=== PATIENT | female | born 1945 | race Caucasian/White ===

== ENCOUNTER 2016-09-19 15:10 | Day surgery (SDC) | payer OTHER ==
[~2016-09-19 15:10] MED LIST: ACYCLOVIR200 MG PO; AMBIEN5 MG PO; AMLODIPINE BESY10 MG PO; AMLODIPINE BESYL5 MG PO; ASPIR-LOW81 M1; ASPIR-LOW81 MG PO; ATIVAN1 MG PO; BENAZEPRIL HCL40 MG PO; CALCITRIOL0.25 MCG; CALCITRIOL0.25 MCG PO; CLONIDINE HCL0.1 MG PO; CLONIDINE HCL0.2 MG PO; COLACE100 MG PO; COUMADIN2 MG PO; COUMADIN3 MG PO; DRISDOL50000 UNIT PO; FUROSEMIDE40 MG; FUROSEMIDE40 MG PO; FUROSEMIDE80 MG PO; HYDRALAZINE HC100 MG PO; HYDROXYZINE HCL25 MG PO; KLOR-CON M2020 MEQ PO; KLOR-CON20 MEQ PO; LACTULOSE10 GM/151 PO; LASIX40 MG PO; LEVEMIR FL100 UNIT/1 SC; LEVEMIR FL100 UNITS/ SC; LEVEMIR100 UNIT/2; LEVEMIR100 UNIT/2 SC; LEVOTHROID137 MCG; LEVOTHYROXINE150 MCG PO; LISINOPRIL-HCT1 EAC3; LISINOPRIL-HCT1 EACH PO; LOPRESSOR100 M1 PO; LOSARTAN POTAS100 MG PO; METOLAZONE5 MG PO; METOPROLOL SUC100 MG PO; METOPROLOL TAR100 MG; MIRALAX17 GM PO; MYCOSTATIN 100,60 ML PO; NEPHRO-VITE,1 TABLET PO; NITROGLYCERIN0.4 MG SL; NITROSTAT0.4 MG SL; NORVASC5 MG PO; NOVOLOG 10100 UNITS/ SC; NOVOLOG PE100 UNITS/ SC; NOVOLOG PE100 UNITS/ SQ; OXYCODONE HCL5 MG PO; PEN-VEE K,VEET500 MG PO; PERCOCET 5/31 TABLET PO; PLAVIX75 MG; PLAVIX75 MG PO; PRINIVIL20 MG PO; PROAIR HFA8.5 GM IH; RENVELA800 MG PO; SYMBICORT60 INHALAT IH; SYNTHROID150 MCG PO; SYNTHROID175 MCG PO; URSODIOL300 MG PO; VITAMIN B12 100MCG PO; VITAMIN D2000 UNIT PO; VITAMIN D22000 UNIT PO; VITAMIN D5000 UNIT; WARFARIN SODIUM1 MG PO; WARFARIN SODIUM3 MG PO; XALATAN2.5 ML; XALATAN2.5 ML BOTH EYES; XYLOCAINE VISC100 ML MM; ZOFRAN8 MG PO; ZOLPIDEM TARTRA10 MG; ZOLPIDEM TARTRA10 MG PO
[2016-09-19 15:49] LABS: POINT-OF-CARE METER ID UU13113696
[2016-09-19 17:05] LABS: METH RESISTANT S AUREUS PCR NEGATIVE (NEGATIVE)
[2016-09-19 17:11] LABS: PROBE CHECK PASS; SPECIMEN PROCESSING CONTROL PASS
[2016-09-19 17:28] LABS: POINT-OF-CARE METER ID UU13113819
== END 2016-09-20 18:05 | disposition home or self-care (01) ==
LOC: CATH 15:10
PROVIDERS: Surgery
DX: T82.858A Stenosis of other vascular prosthetic devices, implants and grafts, initial encounter (principal); Y83.2 Surgical operation with anastomosis, bypass or graft as the cause of abnormal reaction of the patient, or of later complication, without mention of misadventure at the time of the procedure; Z99.2 Dependence on renal dialysis; I12.0 Hypertensive chronic kidney disease with stage 5 chronic kidney disease or end stage renal disease; E11.22 Type 2 diabetes mellitus with diabetic chronic kidney disease; N18.6 End stage renal disease; E78.5 Hyperlipidemia, unspecified; J44.9 Chronic obstructive pulmonary disease, unspecified; I48.91 Unspecified atrial fibrillation
CPT/HCPCS: 82948; 87641; C1725; C1769; C1894; J1644; J2250; J3010

== ENCOUNTER 2016-11-20 08:00 | Day surgery (SDC) | payer OTHER ==
[~2016-11-20] VITALS: Ht 165.1 cm; Wt 95.3 kg
[2016-11-20] MEDS ORDERED: COUMADIN3 MG PO (08:41)
[2016-11-20] MEDS ORDERED: COUMADIN2 MG PO (08:43)
[2016-11-20 08:46] LABS: POINT-OF-CARE METER ID UU13113696
[2016-11-20 10:00] LABS: METH RESISTANT S AUREUS PCR NEGATIVE (NEGATIVE)
[2016-11-20 10:06] LABS: PROBE CHECK PASS; SPECIMEN PROCESSING CONTROL PASS
== END 2016-11-20 12:45 | disposition home or self-care (01) ==
LOC: CATH 08:00
PROVIDERS: Surgery
DX: T82.858A Stenosis of other vascular prosthetic devices, implants and grafts, initial encounter (principal); T82.898A Other specified complication of vascular prosthetic devices, implants and grafts, initial encounter; Y83.2 Surgical operation with anastomosis, bypass or graft as the cause of abnormal reaction of the patient, or of later complication, without mention of misadventure at the time of the procedure; N18.6 End stage renal disease; Z99.2 Dependence on renal dialysis; E78.5 Hyperlipidemia, unspecified; I65.29 Occlusion and stenosis of unspecified carotid artery; Z79.4 Long term (current) use of insulin; Z79.01 Long term (current) use of anticoagulants; F17.200 Nicotine dependence, unspecified, uncomplicated
CPT/HCPCS: 82948; 87641; C1725; C1769; C1874; C1894; J1644; J2250; J2405; J2765; J3010

== ENCOUNTER 2017-04-10 15:33 | Inpatient (IN) | payer OTHER ==
[~2017-04-10] VITALS: Ht 198.1 cm; Wt 107.5 kg
[~2017-04-10 15:33] MED LIST changes: -DRISDOL50000 UNIT PO; +ERGOCALCIF50000 UNIT PO
[2017-04-10 16:48] LABS: HEMATOCRIT 34.7 % (36.0-46.0); MCH 27.9 PG (29.0-34.0); MCV 87.2 FL (83-99); PLATELET COUNT 222 K/uL (156-360); RBC DIS.WIDTH-CV 13.5 % (11.8-14.6); RBC DIS.WIDTH-SD 42.7 % (39-53); RED BLOOD COUNT 3.98 M/uL (3.80-5.20); WHITE BLOOD COUNT 8.3 K/uL (4.1-10.2)
[2017-04-10 17:08] LABS: CHLORIDE 97 mEq/L (99-109); POTASSIUM 3.9 mEq/L (3.7-5.4); SODIUM 138 mEq/L (136-147)
[2017-04-10 17:10] LABS: GLUCOSE 178 mg/dL (70-99)
[2017-04-10 17:11] LABS: ANION GAP 9 MEQ/L (2-14)
[2017-04-10 17:14] LABS: GFR ESTIMATE (CALCULATED) 22 mL/min/; UREA NITROGEN (BUN) 14 mg/dL (9-23)
[2017-04-10 17:19] LABS: TROP-I INTERPRETATION NEGATIVE; TROPONIN-I 0.03 ng/mL (0.0-0.30)
[2017-04-10 17:58] LABS: INTER. NORMALIZED RATIO 2.6; PROTHROMBIN TIME 29.4 SEC (10.2-12.9)
[2017-04-10] MEDS ORDERED: COUMADIN1 MG PO (18:24)
[2017-04-10] MEDS ORDERED: ZESTRIL40 MG PO (18:28)
[2017-04-10] MEDS ORDERED: LEVOFLOXACIN500 MG PO (18:34)
[2017-04-10 19:45] VITALS: BP 192/79
[2017-04-10 21:43] LABS: POINT-OF-CARE METER ID UU13113700
[2017-04-10 23:56] LABS: TROP-I INTERPRETATION NEGATIVE; TROPONIN-I 0.04 ng/mL (0.0-0.30)
[2017-04-11] VITALS: BP 156/90
[2017-04-11 04:54] VITALS: BP 152/88
[2017-04-11 05:48] LABS: BASOPHIL COUNT 0.1 K/uL (0-0.1); EOSINOPHIL (%) 9.1 % (0-5); EOSINOPHIL COUNT 0.6 K/uL (0-0.3); HEMATOCRIT 31.3 % (36.0-46.0); IMMATURE GRANULOCYTE (%) 0.3 % (0.0-0.7); INSTRUMENT ABS NEUTROPHIL CT 3.9 K/uL; LYMPHOCYTE COUNT 1.5 K/uL (1.0-2.8); MCH 29.6 PG (29.0-34.0); MCHC 33.5 G/DL (30.0-36.0); MCV 88.2 FL (83-99); MEAN PLAT.VOLUME 11.4 uM^3 (9.5-12.4); MONOCYTE COUNT 0.6 K/uL (0-0.8); NEUTROPHIL (%) 58.6 % (45-76); NEUTROPHIL COUNT 3.9 K/uL (1.8-6.4); PLATELET COUNT 183 K/uL (156-360); RBC DIS.WIDTH-CV 13.7 % (11.8-14.6); RBC DIS.WIDTH-SD 44.1 % (39-53); RED BLOOD COUNT 3.55 M/uL (3.80-5.20); WHITE BLOOD COUNT 6.6 K/uL (4.1-10.2)
[2017-04-11 05:53] LABS: ANION GAP 9 MEQ/L (2-14); CHLORIDE 99 MEQ/L (99-109); GFR ESTIMATE (CALCULATED) 16 mL/min/; INTER. NORMALIZED RATIO 2.4; POTASSIUM 3.4 MEQ/L (3.7-5.4); PROTHROMBIN TIME 27.2 SEC (10.2-12.9); SAMPLE HEMOLYSIS CHECK 0; SAMPLE ICTERIC CHECK 0; SAMPLE LIPEMIA CHECK 0; SODIUM 139 MEQ/L (136-147)
[2017-04-11 05:55] LABS: GLUCOSE 101 mg/dL (70-99); UREA NITROGEN (BUN) 24 mg/dL (9-23)
[2017-04-11 05:58] LABS: TROP-I INTERPRETATION NEGATIVE; TROPONIN-I 0.03 ng/mL (0.0-0.30)
[2017-04-11 07:11] VITALS: BP 186/84
[2017-04-11 08:58] LABS: MAGNESIUM 2.2 mg/dl (1.3-2.7)
[2017-04-11 12:00] VITALS: BP 168/74
[2017-04-11 13:16] LABS: POINT-OF-CARE METER ID UU14162513
[2017-04-11 16:35] LABS: POINT-OF-CARE METER ID UU14208750
[2017-04-11 17:06] VITALS: BP 150/65
[2017-04-11 21:30] LABS: POINT-OF-CARE METER ID UU14208750
[2017-04-12 00:44] VITALS: BP 172/73
[2017-04-12 03:30] LABS: POINT-OF-CARE METER ID UU14208750
[2017-04-12 04:06] VITALS: BP 168/72
[2017-04-12 04:54] LABS: POINT-OF-CARE METER ID UU14208750
[2017-04-12 06:43] LABS: POINT-OF-CARE METER ID UU14208750
[2017-04-12 07:13] LABS: INTER. NORMALIZED RATIO 1.9; PROTHROMBIN TIME 21.9 SEC (10.2-12.9)
[2017-04-12 07:15] VITALS: BP 182/81
[2017-04-12 08:21] LABS: INTERNAL CONTROL VALID? YES
[2017-04-12 10:40] LABS: TROP-I INTERPRETATION NEGATIVE; TROPONIN-I 0.03 ng/mL (0.0-0.30)
[2017-04-12 11:22] LABS: POINT-OF-CARE METER ID UU14162508
[2017-04-12 11:35] VITALS: BP 188/74
[2017-04-12 11:56] LABS: HEMATOCRIT 34.8 % (36.0-46.0); MCH 29.7 PG (29.0-34.0); MCHC 32.5 G/DL (30.0-36.0); MCV 91.3 FL (83-99); PLATELET COUNT 207 K/uL (156-360); RBC DIS.WIDTH-SD 46.2 % (39-53); RED BLOOD COUNT 3.81 M/uL (3.80-5.20); WHITE BLOOD COUNT 9.4 K/uL (4.1-10.2)
[2017-04-12 12:22] LABS: CHLORIDE 95 mEq/L (99-109)
[2017-04-12 12:24] LABS: GLUCOSE 119 mg/dL (70-99); POTASSIUM 4.4 mEq/L (3.7-5.4); SODIUM 132 mEq/L (136-147)
[2017-04-12 12:25] LABS: ANION GAP 10 MEQ/L (2-14)
[2017-04-12 12:28] LABS: GFR ESTIMATE (CALCULATED) 13 mL/min/
[2017-04-12 12:32] LABS: UREA NITROGEN (BUN) 42 mg/dL (9-23)
[2017-04-12 16:15] VITALS: BP 175/76
[2017-04-12 16:50] LABS: POINT-OF-CARE METER ID UU14162508
[2017-04-12 17:12] LABS: POINT-OF-CARE METER ID UU14208750
[2017-04-12 17:43] LABS: POINT-OF-CARE METER ID UU14208750
[2017-04-12 21:24] LABS: POINT-OF-CARE METER ID UU14208750
[2017-04-12 23:21] VITALS: BP 91/51
[2017-04-13 03:37] LABS: POINT-OF-CARE METER ID UU14162508
[2017-04-13 05:35] LABS: HEMATOCRIT 31.8 % (36.0-46.0); MCH 29.2 PG (29.0-34.0); MCHC 32.4 G/DL (30.0-36.0); MCV 90.1 FL (83-99); MEAN PLAT.VOLUME 11.5 uM^3 (9.5-12.4); PLATELET COUNT 197 K/uL (156-360); RBC DIS.WIDTH-CV 13.9 % (11.8-14.6); RBC DIS.WIDTH-SD 45.1 % (39-53); RED BLOOD COUNT 3.53 M/uL (3.80-5.20); WHITE BLOOD COUNT 9.5 K/uL (4.1-10.2)
[2017-04-13 05:43] LABS: INTER. NORMALIZED RATIO 1.9; PROTHROMBIN TIME 21.1 SEC (10.2-12.9)
[2017-04-13 06:16] LABS: POINT-OF-CARE METER ID UU14162508
[2017-04-13 06:50] VITALS: BP 179/70
[2017-04-13 07:18] LABS: ANION GAP 11 MEQ/L (2-14); CHLORIDE 96 MEQ/L (99-109); GFR ESTIMATE (CALCULATED) 11 mL/min/; GLUCOSE 134 mg/dL (70-99); POTASSIUM 4.5 MEQ/L (3.7-5.4); SAMPLE HEMOLYSIS CHECK 0; SAMPLE ICTERIC CHECK 0; SAMPLE LIPEMIA CHECK 0; SODIUM 133 MEQ/L (136-147); UREA NITROGEN (BUN) 48 mg/dL (9-23)
[2017-04-13 08:24] LABS: EOSINOPHIL (%) 6.3 % (0-5); EOSINOPHIL COUNT 0.6 K/uL (0-0.3); HEMATOCRIT 31.7 % (36.0-46.0); IMMATURE GRANULOCYTE (%) 0.3 % (0.0-0.7); INSTRUMENT ABS NEUTROPHIL CT 6.8 K/uL; LYMPHOCYTE COUNT 0.9 K/uL (1.0-2.8); MCH 29.3 PG (29.0-34.0); MCHC 32.8 G/DL (30.0-36.0); MCV 89.3 FL (83-99); MEAN PLAT.VOLUME 11.5 uM^3 (9.5-12.4); MONOCYTE (%) 5.9 % (3-12); MONOCYTE COUNT 0.5 K/uL (0-0.8); NEUTROPHIL (%) 76.9 % (45-76); NEUTROPHIL COUNT 6.8 K/uL (1.8-6.4); PLATELET COUNT 213 K/uL (156-360); RBC DIS.WIDTH-CV 13.9 % (11.8-14.6); RBC DIS.WIDTH-SD 45.1 % (39-53); RED BLOOD COUNT 3.55 M/uL (3.80-5.20); WHITE BLOOD COUNT 8.8 K/uL (4.1-10.2)
[2017-04-13 12:40] LABS: POINT-OF-CARE METER ID UU14208750
[2017-04-13 12:48] LABS: POINT-OF-CARE METER ID UU14208750
[2017-04-13 13:21] VITALS: BP 169/72
[2017-04-13 14:48] VITALS: BP 189/77
[2017-04-13 15:37] LABS: POINT-OF-CARE METER ID UU14208750
[2017-04-13 19:17] VITALS: BP 141/63
[2017-04-13 21:32] LABS: POINT-OF-CARE METER ID UU14208750
[2017-04-13 23:20] VITALS: BP 138/66
[2017-04-14 06:51] LABS: POINT-OF-CARE METER ID UU14162508
[2017-04-14 07:22] LABS: PROTHROMBIN TIME 22.3 SEC (10.2-12.9)
[2017-04-14 08:44] VITALS: BP 180/77
[2017-04-14 11:34] LABS: POINT-OF-CARE METER ID UU14162508
[2017-04-14 15:39] VITALS: BP 180/72
[2017-04-14 16:20] VITALS: BP 160/70
[2017-04-14 16:37] LABS: TROP-I INTERPRETATION NEGATIVE; TROPONIN-I 0.04 ng/mL (0.0-0.30)
[2017-04-14 16:50] LABS: POINT-OF-CARE METER ID UU14208750
[2017-04-14 21:12] VITALS: BP 180/70
[2017-04-14 21:32] LABS: POINT-OF-CARE METER ID UU14162508
[2017-04-14 23:58] VITALS: BP 134/61
[2017-04-15 03:08] VITALS: BP 172/78
[2017-04-15 05:13] VITALS: BP 151/72
[2017-04-15 06:27] LABS: POINT-OF-CARE METER ID UU14162508
[2017-04-15 09:08] LABS: PROTHROMBIN TIME 22.1 SEC (10.2-12.9)
[2017-04-15 09:09] LABS: BASOPHIL COUNT 0.1 K/uL (0-0.1); EOSINOPHIL (%) 6.4 % (0-5); EOSINOPHIL COUNT 0.5 K/uL (0-0.3); HEMATOCRIT 31.9 % (36.0-46.0); IMMATURE GRANULOCYTE (%) 0.4 % (0.0-0.7); INSTRUMENT ABS NEUTROPHIL CT 6.2 K/uL; LYMPHOCYTE COUNT 0.9 K/uL (1.0-2.8); MCH 28.2 PG (29.0-34.0); MCV 88.1 FL (83-99); MEAN PLAT.VOLUME 11.6 uM^3 (9.5-12.4); MONOCYTE COUNT 0.7 K/uL (0-0.8); NEUTROPHIL (%) 73.6 % (45-76); NEUTROPHIL COUNT 6.2 K/uL (1.8-6.4); PLATELET COUNT 218 K/uL (156-360); RBC DIS.WIDTH-CV 14.1 % (11.8-14.6); RBC DIS.WIDTH-SD 45.1 % (39-53); RED BLOOD COUNT 3.62 M/uL (3.80-5.20); WHITE BLOOD COUNT 8.4 K/uL (4.1-10.2)
[2017-04-15 09:30] LABS: ANION GAP 10 MEQ/L (2-14); CHLORIDE 99 MEQ/L (99-109); POTASSIUM 4.8 MEQ/L (3.7-5.4); SAMPLE HEMOLYSIS CHECK 0; SAMPLE ICTERIC CHECK 0; SAMPLE LIPEMIA CHECK 0; SODIUM 134 MEQ/L (136-147)
[2017-04-15 09:36] LABS: GFR ESTIMATE (CALCULATED) 10 mL/min/; GLUCOSE 155 mg/dL (70-99); UREA NITROGEN (BUN) 52 mg/dL (9-23)
[2017-04-15 12:51] LABS: POINT-OF-CARE METER ID UU14162508
[2017-04-15 12:55] VITALS: BP 130/66
[2017-04-15 15:33] VITALS: BP 130/62
[2017-04-15 16:05] LABS: POINT-OF-CARE METER ID UU14162508
[2017-04-15 21:40] LABS: POINT-OF-CARE METER ID UU14162508
[2017-04-15 21:48] VITALS: BP 140/70
[2017-04-15 23:20] VITALS: BP 165/76
[2017-04-16 06:58] VITALS: BP 152/69
[2017-04-16 07:00] LABS: POINT-OF-CARE METER ID UU14208750
[2017-04-16 07:12] LABS: INTER. NORMALIZED RATIO 2.2; PROTHROMBIN TIME 24.6 SEC (10.2-12.9)
[2017-04-16] MEDS ORDERED: DULCOLAX5 MG PO (09:09)
[2017-04-16] MEDS ORDERED: CLONIDINE HCL0.1 MG PO (09:09)
[2017-04-16] MEDS ORDERED: LEVOFLOXACIN500 MG PO (09:09)
[2017-04-16] MEDS ORDERED: SENNA LAX8.6 MG PO (09:09)
[2017-04-16] MEDS ORDERED: COLACE100 MG PO (09:09)
== END 2017-04-16 10:28 | disposition home health service (06) | DRG 190 ==
LOC: EME → EDBD 15:33 → EME 15:33 → EDOF 18:31 → ENRESERV 18:33 → 2EAST 19:44 → 5WEST 19:46 → 2EAST 04-11 10:16 → ENRESERV 04-11 12:26 → 2EAST 04-11 16:13
PROVIDERS: Emergency Medicine; Hospitalist; Internal Medicine; Physician Assistant Medical
PROC: 5A1D60Z (ICD-10-PCS; principal; 2017-04-13)
DX: J44.0 Chronic obstructive pulmonary disease with (acute) lower respiratory infection (principal); J18.9 Pneumonia, unspecified organism; J96.01 Acute respiratory failure with hypoxia; J44.1 Chronic obstructive pulmonary disease with (acute) exacerbation; E11.649 Type 2 diabetes mellitus with hypoglycemia without coma; E87.6 Hypokalemia; I13.2 Hypertensive heart and chronic kidney disease with heart failure and with stage 5 chronic kidney disease, or end stage renal disease; I50.9 Heart failure, unspecified; E11.22 Type 2 diabetes mellitus with diabetic chronic kidney disease; N18.6 End stage renal disease; D63.1 Anemia in chronic kidney disease; N25.81 Secondary hyperparathyroidism of renal origin; E03.9 Hypothyroidism, unspecified; E66.2 Morbid (severe) obesity with alveolar hypoventilation; E78.5 Hyperlipidemia, unspecified; I25.10 Atherosclerotic heart disease of native coronary artery without angina pectoris; F41.9 Anxiety disorder, unspecified; G47.00 Insomnia, unspecified; I27.2 Other secondary pulmonary hypertension; I48.2 Chronic atrial fibrillation; K59.00 Constipation, unspecified; M35.3 Polymyalgia rheumatica; G43.909 Migraine, unspecified, not intractable, without status migrainosus; Z79.01 Long term (current) use of anticoagulants; Z79.4 Long term (current) use of insulin; I25.2 Old myocardial infarction; Z99.2 Dependence on renal dialysis; Z91.19 Patient's noncompliance with other medical treatment and regimen; Z95.5 Presence of coronary angioplasty implant and graft; Z88.2 Allergy status to sulfonamides; Z68.25 Body mass index [BMI] 25.0-25.9, adult
CPT/HCPCS: 71010; 71020; 71250; 74000; 76705; 80048; 80069; 82948; 83735; 84484; 85025; 85027; 85610; 87040; 87070; 87205; 87449; 93005; 93306; 94799; 97530 GP; 99202; 99281; 99285; G0378; G8978 GP CJ; G8979 GP CI; J0360; J0456; J0696; J0881; J1270; J1756; J1815; J2270; J2405; J7050

== ENCOUNTER 2017-07-09 08:00 | Day surgery (SDC) | payer OTHER ==
[~2017-07-09] VITALS: Ht 167.6 cm; Wt 95.2 kg
[~2017-07-09 08:00] MED LIST changes: +DULCOLAX5 MG PO; +LEVOFLOXACIN500 MG PO; +SENNA LAX8.6 MG PO; +ZESTRIL40 MG PO
[2017-07-09 09:08] LABS: POINT-OF-CARE METER ID UU13113696
[2017-07-09 10:10] LABS: METH RESISTANT S AUREUS PCR NEGATIVE (NEGATIVE); PROBE CHECK PASS; SPECIMEN PROCESSING CONTROL PASS
== END 2017-07-09 11:10 | disposition home or self-care (01) ==
LOC: CATH 08:00
PROVIDERS: Surgery
DX: T82.41XA Breakdown (mechanical) of vascular dialysis catheter, initial encounter (principal); N18.6 End stage renal disease; Z99.2 Dependence on renal dialysis; Z79.01 Long term (current) use of anticoagulants
CPT/HCPCS: 82948; 87641; C1725; C1769; C1874; C1894; J1644; J2250; J2405; J3010

== ENCOUNTER 2017-09-02 16:12 | Emergency (ER) | payer OTHER ==
[~2017-09-02] VITALS: Ht 167.6 cm; Wt 102.5 kg
[2017-09-02 18:07] LABS: HEMATOCRIT 32.5 % (36.0-46.0); HEMOGLOBIN 10.5 G/DL (11.9-15.5); MCHC 32.3 G/DL (30.0-36.0); MCV 89.8 FL (83-99); PLATELET COUNT 271 K/uL (156-360); RBC DIS.WIDTH-CV 13.2 % (11.8-14.6); RBC DIS.WIDTH-SD 43.2 % (39-53); RED BLOOD COUNT 3.62 M/uL (3.80-5.20); WHITE BLOOD COUNT 12.8 K/uL (4.1-10.2)
[2017-09-02 18:14] LABS: CHLORIDE 91 mEq/L (99-109); POTASSIUM 4.6 mEq/L (3.7-5.4); PTT 49.8 SEC (25-37); SODIUM 132 mEq/L (136-147)
[2017-09-02 18:16] LABS: GLUCOSE 239 mg/dL (70-99)
[2017-09-02 18:19] LABS: INTER. NORMALIZED RATIO 3.8
[2017-09-02 18:20] LABS: CREATININE 5.3 mg/dL (0.6-1.3); GFR ESTIMATE (CALCULATED) 9 mL/min/; UREA NITROGEN (BUN) 61 mg/dL (9-23)
[2017-09-02 21:20] VITALS: BP 167/60
== END 2017-09-02 21:43 | disposition home or self-care (01) ==
LOC: EME 16:12
PROVIDERS: Emergency Medicine
DX: S70.01XA Contusion of right hip, initial encounter (principal); S70.11XA Contusion of right thigh, initial encounter; N18.9 Chronic kidney disease, unspecified; Z99.2 Dependence on renal dialysis; R51 Headache; W01.0XXA Fall on same level from slipping, tripping and stumbling without subsequent striking against object, initial encounter; S91.103A Unspecified open wound of unspecified great toe without damage to nail, initial encounter; J45.909 Unspecified asthma, uncomplicated; I50.9 Heart failure, unspecified; E03.9 Hypothyroidism, unspecified; I25.2 Old myocardial infarction; H54.8 Legal blindness, as defined in USA; Z87.442 Personal history of urinary calculi; Z79.01 Long term (current) use of anticoagulants; Z88.5 Allergy status to narcotic agent; Z88.2 Allergy status to sulfonamides; Z88.6 Allergy status to analgesic agent
CPT/HCPCS: 70450; 73030; 73521; 73564; 80048; 85027; 85610; 85730; 99281; 99285

== ENCOUNTER → 2017-09-09 | Outpatient (CLI) | payer MEDICARE, OTHER | END | disposition home or self-care (01) | LOC: CDC 15:30 | DX: Z01.810 Encounter for preprocedural cardiovascular examination (principal); I48.91 Unspecified atrial fibrillation; I44.4 Left anterior fascicular block; I45.4 Nonspecific intraventricular block; I45.81 Long QT syndrome | CPT/HCPCS: 93000 ==

== ENCOUNTER 2017-12-18 10:12 | Inpatient (IN) | payer OTHER ==
[~2017-12-18] VITALS: Ht 167.6 cm; Wt 215.0 kg
[2017-12-18 11:18] LABS: BASOPHIL (%) 0.6 % (0-1); BASOPHIL COUNT 0.1 K/uL (0-0.1); EOSINOPHIL (%) 3.5 % (0-5); EOSINOPHIL COUNT 0.4 K/uL (0-0.3); HEMATOCRIT 34.4 % (36.0-46.0); HEMOGLOBIN 11.1 G/DL (11.9-15.5); IMMATURE GRANULOCYTE (%) 0.4 % (0.0-0.7); LYMPHOCYTE (%) 4.5 % (15-42); LYMPHOCYTE COUNT 0.5 K/uL (1.0-2.8); MCH 29.4 PG (29.0-34.0); MCHC 32.3 G/DL (30.0-36.0); MONOCYTE (%) 4.1 % (3-12); MONOCYTE COUNT 0.4 K/uL (0-0.8); NEUTROPHIL (%) 86.9 % (45-76); NEUTROPHIL COUNT 9.4 K/uL (1.8-6.4); PLATELET COUNT 234 K/uL (156-360); RBC DIS.WIDTH-CV 12.8 % (11.8-14.6); RBC DIS.WIDTH-SD 42.5 % (39-53); RED BLOOD COUNT 3.78 M/uL (3.80-5.20); WHITE BLOOD COUNT 10.8 K/uL (4.1-10.2)
[2017-12-18 11:23] LABS: INTER. NORMALIZED RATIO 2.3
[2017-12-18 11:24] LABS: BASE EXCESS -0.8 mEq/L (-3 to +3); BICARBONATE 24.3 mEq/L (22-26); CARBOXY HGB 1.4 % (0-5); PCO2 41 mm Hg (35-45); PO2 136 mm Hg (80-100); pH 7.38 (7.35-7.45)
[2017-12-18 11:25] LABS: COMMENTS - BLOOD GASES A+C+; DEVICE NRBM; O2 FLOW 15 L/MIN; SITE RR
[2017-12-18 11:26] LABS: PTT 42.1 SEC (25-37)
[2017-12-18 11:29] LABS: CHLORIDE 99 mEq/L (99-109); POTASSIUM 4.5 mEq/L (3.7-5.4); SODIUM 138 mEq/L (136-147)
[2017-12-18 11:30] LABS: MAGNESIUM 2.6 mg/dL (1.3-2.7)
[2017-12-18 11:31] LABS: GLUCOSE 301 mg/dL (70-99)
[2017-12-18 11:35] LABS: GFR ESTIMATE (CALCULATED) 6 mL/min/; UREA NITROGEN (BUN) 62 mg/dL (9-23)
[2017-12-18 11:39] LABS: TROP-I INTERPRETATION NEGATIVE; TROPONIN-I 0.03 ng/mL (0.0-0.30)
[2017-12-18] MEDS ORDERED: CATAPRES0.1 MG PO (12:59)
[2017-12-18] MEDS ORDERED: CILOSTAZOL50 MG PO (13:00)
[2017-12-18] MEDS ORDERED: DOXYCYCLINE MO100 M1 PO (13:01)
[2017-12-18] MEDS ORDERED: SYNTHROID200 MCG PO (13:02)
[2017-12-18] MEDS ORDERED: KEFLEX500 MG PO (13:03)
[2017-12-18] MEDS ORDERED: PULMICORT FLEX90 MCG IH (13:05)
[2017-12-18] MEDS ORDERED: COUMADIN3 MG PO (13:09)
[2017-12-18 18:54] VITALS: BP 134/68
[2017-12-18 23:19] VITALS: BP 123/86
[2017-12-19 03:46] VITALS: BP 129/59
[2017-12-19 06:42] LABS: HEMATOCRIT 30.6 % (36.0-46.0); HEMOGLOBIN 9.6 G/DL (11.9-15.5); MCH 28.7 PG (29.0-34.0); MCHC 31.4 G/DL (30.0-36.0); MCV 91.3 FL (83-99); PLATELET COUNT 215 K/uL (156-360); RBC DIS.WIDTH-CV 12.7 % (11.8-14.6); RBC DIS.WIDTH-SD 42.1 % (39-53); RED BLOOD COUNT 3.35 M/uL (3.80-5.20); WHITE BLOOD COUNT 7.3 K/uL (4.1-10.2)
[2017-12-19 06:47] LABS: INTER. NORMALIZED RATIO 2.3
[2017-12-19 07:05] LABS: CHLORIDE 97 MEQ/L (99-109); GLUCOSE 190 mg/dL (70-99); POTASSIUM 3.9 MEQ/L (3.7-5.4); SODIUM 138 MEQ/L (136-147); UREA NITROGEN (BUN) 33 mg/dL (9-23)
[2017-12-19 07:09] LABS: CREATININE 4.5 MG/DL (0.6-1.3); GFR ESTIMATE (CALCULATED) 10 mL/min/
[2017-12-19 07:28] VITALS: BP 139/63
[2017-12-19 11:53] VITALS: BP 132/60
[2017-12-19 16:00] VITALS: BP 125/56
[2017-12-19 19:30] VITALS: BP 132/67
[2017-12-19 23:18] VITALS: BP 143/69
[2017-12-20 04:06] VITALS: BP 133/71
[2017-12-20 06:20] LABS: HEMATOCRIT 29.4 % (36.0-46.0); HEMOGLOBIN 9.5 G/DL (11.9-15.5); MCH 29.5 PG (29.0-34.0); MCHC 32.3 G/DL (30.0-36.0); MCV 91.3 FL (83-99); PLATELET COUNT 200 K/uL (156-360); RBC DIS.WIDTH-CV 12.5 % (11.8-14.6); RBC DIS.WIDTH-SD 41.7 % (39-53); RED BLOOD COUNT 3.22 M/uL (3.80-5.20); WHITE BLOOD COUNT 6.6 K/uL (4.1-10.2)
[2017-12-20 06:48] LABS: CHLORIDE 96 MEQ/L (99-109); GFR ESTIMATE (CALCULATED) 8 mL/min/; MAGNESIUM 2.3 mg/dl (1.3-2.7); SODIUM 135 MEQ/L (136-147)
[2017-12-20 06:49] LABS: CREATININE 5.9 MG/DL (0.6-1.3); GLUCOSE 81 mg/dL (70-99); UREA NITROGEN (BUN) 51 mg/dL (9-23)
[2017-12-20 07:56] VITALS: BP 146/65
[2017-12-20 11:48] VITALS: BP 140/64
[2017-12-20 15:44] VITALS: BP 137/60
[2017-12-20 19:48] VITALS: BP 134/62
[2017-12-20 23:40] VITALS: BP 162/69
[2017-12-21 03:36] VITALS: BP 137/62
[2017-12-21 06:47] LABS: HEMATOCRIT 28.5 % (36.0-46.0); HEMOGLOBIN 9.1 G/DL (11.9-15.5); MCH 28.3 PG (29.0-34.0); MCHC 31.9 G/DL (30.0-36.0); MCV 88.8 FL (83-99); PLATELET COUNT 200 K/uL (156-360); RBC DIS.WIDTH-CV 12.5 % (11.8-14.6); RED BLOOD COUNT 3.21 M/uL (3.80-5.20); WHITE BLOOD COUNT 9.8 K/uL (4.1-10.2)
[2017-12-21 06:57] LABS: INTER. NORMALIZED RATIO 1.8
[2017-12-21 07:11] LABS: CHLORIDE 93 MEQ/L (99-109); CREATININE 6.9 MG/DL (0.6-1.3); GFR ESTIMATE (CALCULATED) 6 mL/min/; GLUCOSE 139 mg/dL (70-99); MAGNESIUM 2.5 mg/dl (1.3-2.7); PHOSPHORUS 5.1 mg/dL (2.5-4.9); POTASSIUM 4.4 MEQ/L (3.7-5.4); SODIUM 132 MEQ/L (136-147); UREA NITROGEN (BUN) 67 mg/dL (9-23)
[2017-12-21 07:34] VITALS: BP 124/60
== END 2017-12-21 15:49 | disposition home or self-care (01) | DRG 189 ==
LOC: EME 10:12 → 5SOUTH 13:39 → EDOF 13:39 → CANRESERV 13:47 → ENRESERV 13:47 → EDOF 14:07 → 5SOUTH 18:19
PROVIDERS: Emergency Medicine; Family Medicine; Internal Medicine
DX: J81.1 Chronic pulmonary edema (principal); J96.01 Acute respiratory failure with hypoxia; I13.2 Hypertensive heart and chronic kidney disease with heart failure and with stage 5 chronic kidney disease, or end stage renal disease; E11.22 Type 2 diabetes mellitus with diabetic chronic kidney disease; J90 Pleural effusion, not elsewhere classified; Z68.45 Body mass index [BMI] 70 or greater, adult; E66.01 Morbid (severe) obesity due to excess calories; M86.9 Osteomyelitis, unspecified; I27.20 Pulmonary hypertension, unspecified; I48.2 Chronic atrial fibrillation; E78.5 Hyperlipidemia, unspecified; N18.6 End stage renal disease; I50.9 Heart failure, unspecified; J98.11 Atelectasis; I25.10 Atherosclerotic heart disease of native coronary artery without angina pectoris; E11.51 Type 2 diabetes mellitus with diabetic peripheral angiopathy without gangrene; T38.3X5A Adverse effect of insulin and oral hypoglycemic [antidiabetic] drugs, initial encounter; N25.81 Secondary hyperparathyroidism of renal origin; D63.1 Anemia in chronic kidney disease; E87.2 Acidosis; E11.21 Type 2 diabetes mellitus with diabetic nephropathy; E11.69 Type 2 diabetes mellitus with other specified complication; L08.9 Local infection of the skin and subcutaneous tissue, unspecified; Z82.49 Family history of ischemic heart disease and other diseases of the circulatory system; Z79.4 Long term (current) use of insulin; Z79.01 Long term (current) use of anticoagulants; Z95.5 Presence of coronary angioplasty implant and graft; Z88.2 Allergy status to sulfonamides; Z99.2 Dependence on renal dialysis; Z90.710 Acquired absence of both cervix and uterus; Z89.429 Acquired absence of other toe(s), unspecified side; Z89.412 Acquired absence of left great toe; Z80.1 Family history of malignant neoplasm of trachea, bronchus and lung
CPT/HCPCS: 36600; 71045; 71046; 80048; 82803; 82948; 83735; 84100; 84484; 85025; 85027; 85610; 85730; 87040; 93005; 94799; 99281; 99285; J0881; J1270; J1815

== ENCOUNTER 2018-04-13 07:59 | Day surgery (SDC) | payer OTHER ==
[~2018-04-13] VITALS: Ht 167.6 cm; Wt 98.0 kg
[~2018-04-13 07:59] MED LIST changes: +CATAPRES0.1 MG PO; +CILOSTAZOL50 MG PO; +DOXYCYCLINE MO100 M1 PO; +KEFLEX500 MG PO; +PULMICORT FLEX90 MCG IH; +SYNTHROID200 MCG PO
== END 2018-04-13 11:15 | disposition home or self-care (01) ==
LOC: CATH 07:59
PROVIDERS: Surgery
DX: T82.858A Stenosis of other vascular prosthetic devices, implants and grafts, initial encounter (principal); Y83.2 Surgical operation with anastomosis, bypass or graft as the cause of abnormal reaction of the patient, or of later complication, without mention of misadventure at the time of the procedure; I12.0 Hypertensive chronic kidney disease with stage 5 chronic kidney disease or end stage renal disease; N18.6 End stage renal disease; E11.22 Type 2 diabetes mellitus with diabetic chronic kidney disease; Z79.4 Long term (current) use of insulin; Z99.2 Dependence on renal dialysis; I48.91 Unspecified atrial fibrillation; D64.9 Anemia, unspecified; I25.10 Atherosclerotic heart disease of native coronary artery without angina pectoris; Z79.01 Long term (current) use of anticoagulants
CPT/HCPCS: 82948; 87641; C1725; C1769; C1894; J1644; J2250; J2405; J3010

== ENCOUNTER → 2018-04-14 | Outpatient (CLI) | payer MEDICARE, OTHER | END | disposition home or self-care (01) | LOC: CDC 15:01 | DX: Z01.810 Encounter for preprocedural cardiovascular examination (principal); I70.25 Atherosclerosis of native arteries of other extremities with ulceration; I48.91 Unspecified atrial fibrillation; I44.4 Left anterior fascicular block; R94.31 Abnormal electrocardiogram [ECG] [EKG] | CPT/HCPCS: 93000 ==

== ENCOUNTER 2018-04-23 11:04 | Day surgery (SDC) | payer OTHER ==
[~2018-04-23] VITALS: Ht 167.6 cm; Wt 97.5 kg
[~2018-04-23 11:04] MED LIST changes: +SENNA8.6 MG PO
[2018-04-23 12:00] LABS: INTER. NORMALIZED RATIO 1.2
[2018-04-23 12:10] LABS: HEMATOCRIT 35.4 % (36.0-46.0); HEMOGLOBIN 11.1 G/DL (11.9-15.5); MCH 28.2 PG (29.0-34.0); MCHC 31.4 G/DL (30.0-36.0); MCV 90.1 FL (83-99); PLATELET COUNT 199 K/uL (156-360); RBC DIS.WIDTH-SD 45.6 % (39-53); RED BLOOD COUNT 3.93 M/uL (3.80-5.20)
[2018-04-23 12:16] VITALS: BP 152/67
[2018-04-23 12:51] LABS: CHLORIDE 95 MEQ/L (99-109); CREATININE 4.1 MG/DL (0.6-1.3); GFR ESTIMATE (CALCULATED) 11 mL/min/; GLUCOSE 118 mg/dL (70-99); POTASSIUM 4.3 MEQ/L (3.7-5.4); SODIUM 136 MEQ/L (136-147); UREA NITROGEN (BUN) 32 mg/dL (9-23)
[2018-04-23 18:51] VITALS: BP 173/74
[2018-04-23 20:06] VITALS: BP 172/70
== END 2018-04-23 20:25 | disposition home or self-care (01) ==
LOC: SDC 11:04
PROVIDERS: Surgery
DX: T82.898A Other specified complication of vascular prosthetic devices, implants and grafts, initial encounter (principal); I12.0 Hypertensive chronic kidney disease with stage 5 chronic kidney disease or end stage renal disease; E11.22 Type 2 diabetes mellitus with diabetic chronic kidney disease; N18.6 End stage renal disease; Z99.2 Dependence on renal dialysis; I48.91 Unspecified atrial fibrillation; I25.10 Atherosclerotic heart disease of native coronary artery without angina pectoris; Z95.5 Presence of coronary angioplasty implant and graft; I25.2 Old myocardial infarction; E78.5 Hyperlipidemia, unspecified; J44.9 Chronic obstructive pulmonary disease, unspecified; Z79.4 Long term (current) use of insulin; Z79.01 Long term (current) use of anticoagulants; I65.29 Occlusion and stenosis of unspecified carotid artery; E11.43 Type 2 diabetes mellitus with diabetic autonomic (poly)neuropathy; K31.84 Gastroparesis; Z82.49 Family history of ischemic heart disease and other diseases of the circulatory system; Z83.3 Family history of diabetes mellitus; Y83.2 Surgical operation with anastomosis, bypass or graft as the cause of abnormal reaction of the patient, or of later complication, without mention of misadventure at the time of the procedure
CPT/HCPCS: 80048; 82948; 85027; 85610; 85730; 93005; C1768; C2628; J0131; J0690; J1170; J1644; J2405; J2720; J2765; J3010